=== PATIENT | male | born 1965 | race Caucasian/White ===

== ENCOUNTER 2018-09-13 10:41 | Outpatient (CLI) | payer BC, OTHER ==
[2018-09-13 11:19] LABS: Hematocrit 47.7 % (35.5-45.6); Mean Corpuscular HGB Conc 34 % (32-34); Mean Corpuscular Volume 92 fl (84-94); Platelet Count 185 K/mm3 (140-440); Red Blood Count 5.18 M/mm3 (3.65-5.03); Red Cell Distribution Width 13.7 % (13.2-15.2)
[2018-09-13 14:43] LABS: Alanine Aminotransferase 20 units/L (7-56); Albumin 4.7 g/dL (3.9-5); BUN/Creatinine Ratio 19; Blood Urea Nitrogen 13 mg/dL (9-20); Calcium 9.6 mg/dL (8.4-10.2); Chol/HDL Ratio 3.28 %; HDL Cholesterol 42 mg/dL (40-59); Hemolysis Index 5; LDL Cholesterol,Direct 95 mg/dL (50-130)
[2018-09-13 14:53] LABS: Free T4 (Free Thyroxine) 1.13 ng/dL (0.76-1.46)
[2018-09-16 19:17] LABS: Vitamin D, 25-OH, D2 <4 ng/mL
== END 2018-09-13 10:42 | disposition home or self-care (01) ==
LOC: LAB 10:41
PROVIDERS: ATTEND Internal Medicine
DX: Z12.5 Encounter for screening for malignant neoplasm of prostate (principal); Z00.00 Encounter for general adult medical examination without abnormal findings; Z13.1 Encounter for screening for diabetes mellitus; Z13.220 Encounter for screening for lipoid disorders; Z13.21 Encounter for screening for nutritional disorder; K21.9 Gastro-esophageal reflux disease without esophagitis
CPT/HCPCS: 36415; 80053; 80061; 82306; 82607; 83036; 84153; 84439; 84443; 85027

== ENCOUNTER 2018-09-13 11:14 | Outpatient (CLI) | payer BC ==
--- NOTE | 2018-09-13 12:23 | XRay Report ---
RIGHT SHOULDER, 3 VIEWS INDICATION: Right shoulder pain for 3 months.. COMPARISON: None. IMPRESSION: No acute osseous or soft tissue abnormality. No significant DJD. Signer Name: Negrito Vital Jr, MD Signed: 09/13/2018 12:18 PM Workstation Name: [id number]
== END 2018-09-13 11:15 | disposition home or self-care (01) ==
LOC: XRAY 11:14
PROVIDERS: ATTEND Internal Medicine
DX: M25.511 Pain in right shoulder (principal); K21.9 Gastro-esophageal reflux disease without esophagitis

== ENCOUNTER 2018-10-13 06:35 | Day surgery (SDC) | payer BC ==
[2018-10-13] MEDS ORDERED: NACL 0.9% 1000 ML 1,000 ML IV SCH (07:00)
[2018-10-13] MEDS ORDERED: XYLOCAINE 1% 20 mL ONE (08:00)
[2018-10-13] MEDS ORDERED: DIPRIVAN 10 MG/ML IV ONE ×2 (08:01)
--- NOTE | 2018-10-13 08:06 | Anesthesia Consultation ---
Anesthesia Consult and Med Hx Date of service: 10/13/18 - Airway Anesthetic Teeth Evaluation: Good ROM Head & Neck: Adequate Mental/Hyoid Distance: Adequate Mallampati Class: Class II Intubation Access Assessment: Good - Pulmonary Exam CTA: Yes - Cardiac Exam Cardiac Exam: RRR - Pre-Operative Health Status ASA Pre-Surgery Classification: ASA2 Proposed Anesthetic Plan: MAC - Pulmonary Hx Smoking: No Hx Asthma: No (reactive airways as a child) Hx Sleep Apnea: Yes (CPAP at night) - Cardiovascular System Hx Hypertension: No Hx Coronary Artery Disease: No Hx Heart Attack/AMI: No Hx Angina: No - Central Nervous System Hx Seizures: No CVA: No Hx Psychiatric Problems: No - Gastrointestinal Hx Gastroesophageal Reflux Disease: Yes - Endocrine Hx Renal Disease: No Hx Liver Disease: No Hx Non-Insulin Dependent Diabetes: No Hx Thyroid Disease: No - Hematic Hx Anemia: No Hx Sickle Cell Disease: No - Other Systems Hx Cancer: No
--- NOTE | 2018-10-13 08:08 | Anesthesia Day of Surgery ---
Anesthesia Day of Surgery - Day of Surgery Patient Examined: Yes Patient H&P Reviewed: Yes Patient is NPO: Yes Beta Blockers: No
[2018-10-13] MEDS ORDERED: WATER FOR IRRIG STERILE IR ONE (08:18)
--- NOTE | 2018-10-13 08:45 | Procedure Note ---
Date of procedure: 10/13/18 Pre-op diagnosis: Colon Polyp Screening Post-op diagnosis: other (Solitary,Small Recto-Sigmoid Polyp (possibly Hyperplastic)/ Minor,InternaL Hemorrhoid/ No Diverticular Disease noted) Procedure: Colonoscopy with Biopsy Anesthesia: MAC Surgeon: NICOLA THORNTON Estimated blood loss: minimal Specimen disposition: to lab Condition: stable Disposition: same day (Hold aspirin,NSAID and anticoagulants for 4 days, otherwise resume home medication. Follow up in 1 to 2 weeks ([phone]).)
--- NOTE | 2018-10-13 08:52 | Operative Report ---
PROCEDURE: Colonoscopy with biopsy. INDICATIONS: The patient is a 53-year-old gentleman who is [employer] employee, who had been sent by his primary care physician for a colonoscopy done as part of colon polyp screening, has an underlying history of sleep apnea. No other significant medical issues. He has a remote history of a collapsed lung. DESCRIPTION OF PROCEDURE: The procedure was done after getting informed consent with MAC anesthesia. Initial rectal exam was unremarkable. Instrument was passed through the rectum onto the cecum, which was identified by the ileocecal valve and the appendiceal orifice. Visualization was fair. The cecum was also looked at the retroverted view and the scope was then again placed on the straight view and withdrawn to the hepatic flexure and reintroduced to the cecum. No additional pathology was noted. The cecum, ascending colon, transverse colon, descending colon, and sigmoid showed normal mucosa. There was no evidence of any polyps, colitis or diverticular disease. In the rectosigmoid area, there was a small flat polyp, possibly 7-8 mm in diameter that was removed by cold biopsy, possibly hyperplastic in type and there was minimal bleeding from the biopsy sites and the rectum showed minor internal hemorrhoid on the retroverted view. ASSESSMENT: Colon polyp screening, solitary small rectosigmoid polyp, possibly hyperplastic, removed by cold biopsy and minor internal hemorrhoid. There were no complications associated with the procedure. Minimal bleeding associated with polypectomy. The patient will be asked to avoid aspirin and aspirin-related products for the next few days and follow up. Otherwise resume all other home medications and follow up in the office in 1-2 weeks' time. Proceedure done with the assistance of the GI lab team and with the assistance of anesthesia. Thank you for the kind referral. JOB# [id number] STUART/RACHEL SANDY
[2018-10-13 09:13] VITALS: BP 127/72
== END 2018-10-13 06:36 | disposition home or self-care (01) ==
LOC: GIO 06:35
DX: Z12.11 Encounter for screening for malignant neoplasm of colon (principal); K62.1 Rectal polyp; K63.5 Polyp of colon; K64.8 Other hemorrhoids; G47.30 Sleep apnea, unspecified; K21.9 Gastro-esophageal reflux disease without esophagitis; Z98.890 Other specified postprocedural states
CPT/HCPCS: 45380; 88305; J2704; J7030

== ENCOUNTER 2018-11-13 11:00 | Outpatient (CLI) | payer BC | END 2018-11-13 11:01 | disposition home or self-care (01) | LOC: SLR 11:00 | PROVIDERS: ATTEND Internal Medicine | DX: G47.30 Sleep apnea, unspecified (principal); K21.9 Gastro-esophageal reflux disease without esophagitis | CPT/HCPCS: 95810 ==

== ENCOUNTER 2018-11-16 11:00 | Outpatient (CLI) | payer BC | END 2018-11-16 11:01 | disposition home or self-care (01) | LOC: SLR 11:00 | PROVIDERS: ATTEND Internal Medicine | DX: G47.33 Obstructive sleep apnea (adult) (pediatric) (principal); K21.9 Gastro-esophageal reflux disease without esophagitis; J45.909 Unspecified asthma, uncomplicated | CPT/HCPCS: 95811 ==

== ENCOUNTER 2019-03-23 07:56 | Emergency (ER) | payer BC ==
[2019-03-23 08:03] VITALS: BP 155/80
[2019-03-23] MEDS ORDERED: MECLIZINE 25 MG TAB PO ONE (08:36)
[2019-03-23] MEDS ORDERED: SODIUM CHLORIDE 0.9% 1000 ML 1,000 ML IV ONE (08:42)
--- NOTE | 2019-03-23 08:42 | Emergency Department Report ---
ED Dizziness HPI - General Chief Complaint: Dizziness Stated Complaint: LIGHT HEADED/DIZZY Time Seen by Provider: 03/23/19 08:17 Source: patient Mode of arrival: Ambulatory Limitations: No Limitations - History of Present Illness Initial Comments: This is a 53-year-old male with no prior medical history other than sleep apnea presents the ED complaining of some dizziness that began this morning when he woke up. Patient states that dizziness is worsened with laying down and bending. Patient states that when he sits still the dizziness is resolved. Patient denies any trauma, injuries or fall. Patient denies any blurred vision, shortness of breath or chest pain. MD Complaint: dizziness Timing: sudden onset, awoke with symptoms Description: "room spinning" History of Same: No History of Trauma: No Severity: mild Improves With: remaining still, other (sitting, resting) Worsens With: position Associated Symptoms: denies: chest pain, confusion, cough, fever/chills, shortness of breath, syncope - Related Data Previous Rx's Medication Instructions Recorded Last Taken Type Meclizine [Antivert] 25 mg PO TID PRN #30 tablet 03/23/19 Unknown Rx Allergies Allergy/AdvReac Type Severity Reaction Status Date / Time No Known Allergies Allergy Verified 03/23/19 07:58 ED Review of Systems ROS: Stated complaint: LIGHT HEADED/DIZZY Other details as noted in HPI Comment: All other systems reviewed and negative ED Past Medical Hx - Past Medical History Hx Hypertension: No Hx Heart Attack/AMI: No Hx GERD: Yes (MILD) Hx Liver Disease: No Hx Renal Disease: No Hx Sickle Cell Disease: No Hx Seizures: No Hx Asthma: No (reactive airways as a child) Additional medical history: SLEEP APNEA/ PNEMOTHROAX - Surgical History Past Surgical History?: Yes - Social History Smoking Status: Never Smoker Substance Use Type: None - Medications Home Medications: Home Medications Medication Instructions Recorded Confirmed Last Taken Type Meclizine [Antivert] 25 mg PO TID PRN #30 tablet 03/23/19 Unknown Rx ED Physical Exam - General Limitations: No Limitations General appearance: alert, in no apparent distress - Head Head exam: Present: atraumatic, normocephalic - Eye Eye exam: Present: normal appearance - ENT ENT exam: Present: mucous membranes moist, other (Tympanic membrane, slight yellow, no redness no swelling. Fluid seen in the ear) - Neck Neck exam: Present: normal inspection - Respiratory Respiratory exam: Present: normal lung sounds bilaterally. Absent: respiratory distress - Cardiovascular Cardiovascular Exam: Present: regular rate, normal rhythm. Absent: systolic murmur, diastolic murmur, rubs, gallop - GI/Abdominal GI/Abdominal exam: Present: soft, normal bowel sounds - Rectal Rectal exam: Present: deferred - Extremities Exam Extremities exam: Present: normal inspection - Back Exam Back exam: Present: normal inspection - Neurological Exam Neurological exam: Present: alert, oriented X3 - Psychiatric Psychiatric exam: Present: normal affect, normal mood - Skin Skin exam: Present: warm, dry, intact, normal color. Absent: rash ED Course Vital Signs 03/23/19 08:00 Temperature 97.9 F Pulse Rate 67 Respiratory 16 Rate Blood Pressure 155/80 O2 Sat by Pulse 100 Oximetry ED Medical Decision Making - EKG Data EKG shows normal: sinus rhythm Rate: normal - EKG Data When compared to previous EKG there are: no significant change Interpretation: normal EKG - Medical Decision Making 52-year-old male who presented with dizziness that resolved. Patient states that dizziness is slightly resolved. Patient received meclizine in the ED. Patient declined to have labs or fluids administered in the ED. Discussed with patient to follow-up with the ENT specialist for ear exam. Discussed continuing meclizine at home 3 times a day. Patient had no neurological symptoms. Patient is able to ambulate without any problems. Vital signs are normal patient is in no acute distress Critical care attestation.: If time is entered above; I have spent that time in minutes in the direct care of this critically ill patient, excluding procedure time. ED Disposition Clinical Impression: Vertigo, benign positional Disposition: DC-01 TO HOME OR SELFCARE Is pt being admited?: No Does the pt Need Aspirin: No Condition: Stable Instructions: Vertigo (ED), Benign Paroxysmal Positional Vertigo (ED), Dizziness (ED) Additional Instructions: Make sure to follow up with the primary care physician as discussed. Take all your medications as you've been prescribed. If you have any worsening symptoms or develop new symptoms please return to ED immediately. Prescriptions: Meclizine [Antivert] 25 mg PO TID PRN #30 tablet PRN Reason: Vertigo Referrals: PRIMARY CARE, [Referring] - 3-5 Days [facility] [Provider Group] - 3-5 Days NGOC ALVARENGA MD [Staff Physician] - 3-5 Days Forms: Accompanied Note, Work/School Release Form(ED) Time of Disposition: 09:03
== END 2019-03-23 09:27 | disposition home or self-care (01) ==
LOC: ED 07:56
DX: H81.10 Benign paroxysmal vertigo, unspecified ear (principal); K21.9 Gastro-esophageal reflux disease without esophagitis
CPT/HCPCS: 93005; 93010; 99282